=== PATIENT | male | born 1980 | race Caucasian/White ===

== ENCOUNTER 2016-09-03 22:41 | Emergency (ER) | payer BC, OTHER ==
[2016-09-03 23:54] VITALS: BP 110/72
[2016-09-04] MEDS ORDERED: Sodium Chloride 0.9% 10 ML Syringe FLUSH PRN (00:09)
[2016-09-04] MEDS ORDERED: Sodium Chloride 0.9% 1,000 ML IV SCH (00:15)
[2016-09-04] MEDS ORDERED: Iopamidol 612 MG/ML 150 ML Bottle IVPUSH ONE (00:18)
[2016-09-04] MEDS ORDERED: Lidocaine 2% Jelly 5 ML Tube TOP ONE ×2 (00:25→00:33)
[2016-09-04] MEDS ORDERED: Lidocaine 2% with EPINEPHrine 1:200,000 20 ML SDV INJECT ONE (00:29)
[2016-09-04] MEDS ORDERED: Lidocaine 2% 20 ML MDV INJECT ONE ×2 (00:33→00:36)
[2016-09-04] MEDS ORDERED: Lidocaine 2% 20 ML MDV ONE (00:34)
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
[2016-09-04] MEDS ORDERED: Lidocaine 1% 50 ML MDV INJECT ONE (00:40)
[2016-09-04] MEDS ORDERED: Lidocaine 1% 50 ML MDV ONE (00:41)
[2016-09-04] MEDS ORDERED: Diatrizoate Meglumine/Diatrizoate Sodium 37% 120 ML Bottle PO ONE (00:56)
[2016-09-04] MEDS: Lidocaine 2% Jelly 10 ML Urojet ONE ×2 (01:19→01:25)
[2016-09-04] MEDS ORDERED: Amoxicillin/Clavulanate K 875-125 MG Tab PO ONE (02:19)
[2016-09-04] MEDS ORDERED: HYDROmorphone 0.5 MG/0.5 ML Syringe IVPUSH ONE (02:48)
--- NOTE | 2016-09-04 13:12 | CT ---
CT abdomen and pelvis Technique: Multiple axial sections were obtained from above the dome of the diaphragm inferiorly through the pubic symphysis. Intravenous and rectal contrast was utilized. No oral contrast has been given. Findings: Visualized lung bases show nothing acute. Liver shows no focal parenchymal abnormality. Spleen appears within normal limits. Kidneys show symmetric contrast enhancement without hydronephrosis or mass. Adrenal glands show no nodule. Pancreas is within normal limits. Aorta shows no aneurysmal dilatation. No retroperitoneal adenopathy or mesenteric abnormalities are seen. Soft tissue air is seen within the perirectal soft tissues. Soft tissue thickening is also seen to the left side presumably due to hematoma. No free fluid or inflammatory type change is otherwise seen. Bone window settings were reviewed which show at least 3 vertical fractures within the coccyx. Impression: 1. Soft tissue air within the perirectal soft tissues as well as soft tissue thickening along the left side of the perirectal soft tissues which could represent either rectal tear or traumatic perirectal trauma. 2. At least 3 coccygeal fractures. Diagnostic code #5 Agree with preliminary report issued by [facility] ([facility] report dictated on 09/04/16, 2:57 AM Central Time)
== END 2016-09-04 04:15 | disposition home or self-care (01) ==
LOC: JD.ED 22:41
DX: S32.2XXA Fracture of coccyx, initial encounter for closed fracture (principal); S31.813A Puncture wound without foreign body of right buttock, initial encounter; S36.62XA Contusion of rectum, initial encounter; S00.81XA Abrasion of other part of head, initial encounter; Z88.5 Allergy status to narcotic agent; V80.918A Animal-rider injured in other transport accident, initial encounter; Y93.I9 Activity, other involving external motion
CPT/HCPCS: 36415; 74177; 80053; 85025; 85610; 86850; 86900; 86901; 96361; 96374; 99284; A9270; J1170; J7040; J7050; Q9963; Q9967; 99285